=== PATIENT | male | born 1995 ===

== ENCOUNTER 2017-10-22 08:06 | Emergency (ER) | payer MEDICAID ==
--- NOTE | 2017-10-22 09:03 | C.PDOC ---
History Of Present Illness 22 y/o male,w/PMhx of asthma, presents to the ER complaining of productive cough with green phlegm and congestion which has been present for the past 2 weeks. Patient states that he did not take any medications for the symptoms. Patient denies having fever, chills, and hx of tobacco use. Time Seen by Provider: 10/22/17 08:21 Chief Complaint (Nursing): Cough, Cold, Congestion History Per: Patient History/Exam Limitations: no limitations Onset/Duration Of Symptoms: Days Current Symptoms Are (Timing): Still Present Severity: Moderate Past Medical History Reviewed: Historical Data, Nursing Documentation, Vital Signs Vital Signs: Last Vital Signs Temp 99 F 10/22/17 09:21 Pulse 94 H 10/22/17 09:21 Resp 18 10/22/17 09:21 BP 110/69 10/22/17 09:21 Pulse Ox 99 10/22/17 10:12 - Medical History PMH: Asthma, Bipolar Disorder, Post Traumatic Stress Disorder Surgical History: No Surg Hx Family History: States: No Known Family Hx - Social History Hx Alcohol Use: No Hx Substance Use: No - Immunization History Hx Tetanus Toxoid Vaccination: No Hx Influenza Vaccination: No Hx Pneumococcal Vaccination: No Review Of Systems Except As Marked, All Systems Reviewed And Found Negative. Constitutional: Negative for: Fever, Chills Respiratory: Positive for: Cough, Other (chest congestion) Physical Exam - Physical Exam Appears: Non-toxic, No Acute Distress Skin: Normal Color, Warm, Dry Head: Atraumatic, Normacephalic Eye(s): bilateral: Normal Inspection Ear(s): Bilateral: Normal Nose: Normal Oral Mucosa: Moist Throat: Normal, No Erythema, No Exudate Neck: Supple Chest: Symmetrical Cardiovascular: Rhythm Regular Respiratory: Normal Breath Sounds, No Rales, No Rhonchi, No Wheezing Extremity: Normal ROM Neurological/Psych: Oriented x3, Normal Speech ED Course And Treatment O2 Sat by Pulse Oximetry: 99 (RA) Pulse Ox Interpretation: Normal Medical Decision Making Medical Decision Making: Assessment: Bronchitis Plan: --Zithromax PO Disposition Counseled Patient/Family Regarding: Diagnosis, Need For Followup, Rx Given - Disposition Disposition: HOME/ ROUTINE Disposition Time: 09:01 Condition: STABLE Additional Instructions: follow up with your doctor in 2 days call to make an appointment take medications as prescribed return to ER if symptoms worses or progress Prescriptions: Azithromycin [Zithromax] 250 mg PO DAILY #4 tab Benzonatate [Tessalon Perles] 100 mg PO BID PRN #14 tab PRN Reason: Cough Instructions: Acute Bronchitis Forms: General Discharge Instructions, [facility] (Yoruba), Work Excuse - Clinical Impression Clinical Impression: Bronchitis - Scribe Statement The provider has reviewed the documentation as recorded by the Aurelio aCrballo Provider Attestation: All medical record entries made by the Aurelio were at my direction and personally dictated by me. I have reviewed the chart and agree that the record accurately reflects my personal performance of the history, physical exam, medical decision making, and the department course for this patient. I have also personally directed, reviewed, and agree with the discharge instructions and disposition.
[2017-10-22 09:22] VITALS: BP 110/69; PULSE 94; RESP 18; TEMP 99
[2017-10-22 10:06] VITALS: O2SAT 99
== END 2017-10-22 09:21 | disposition home or self-care (01) ==
LOC: C.ER 08:06
DX: J40 Bronchitis, not specified as acute or chronic (principal); Z87.891 Personal history of nicotine dependence